=== PATIENT | male | born 1980 | race Caucasian/White ===

== ENCOUNTER 2016-11-27 07:36 | Inpatient (IN) | payer BC, OTHER ==
[~2016-11-27] VITALS: Ht 190.5 cm; Wt 83.9 kg
[2016-11-27] MEDS ORDERED: MAGNESIUM HYDROXIDE 30 ML LIQUID UDC PO PRN (16:00)
[2016-11-27] MEDS ORDERED: DIAZEPAM 5 MG TABLET PO PRN (16:00)
[2016-11-27] MEDS ORDERED: DIAZEPAM 10 MG TABLET PO PRN (16:00)
[2016-11-27] MEDS ORDERED: MIRALAX 17 GM POWD.PACK PO PRN (16:00)
[2016-11-27] MEDS ORDERED: CLONIDINE HCL 0.1 MG TABLET PO PRN (16:00)
[2016-11-27] MEDS ORDERED: DICYCLOMINE HCL 20 MG TABLET PO PRN (16:00)
[2016-11-27] MEDS ORDERED: MAG HYDROX/AL HYDROX/SIMETH 30 ML LIQUID UDC PO PRN (16:00)
[2016-11-27] MEDS ORDERED: LORAZEPAM 2 MG/1 ML VIAL IM PRN (16:00)
[2016-11-27] MEDS ORDERED: PROMETHAZINE HCL 25 MG/1 ML VIAL IM PRN (16:00)
[2016-11-27] MEDS ORDERED: LOPERAMIDE HCL 2 MG CAPSULE PO PRN (16:00)
--- NOTE | 2016-11-27 17:00 | NUR ---
ADMISSION NOTE: Pt is a 36 yo male admitted to [facility] with opiate and benzo dependence. Pt is 6 feet 3 inches tall and weighs 185 pounds. Pt is alert and oriented x4. Color good, skin warm and dry. Respirations even and unlabored. Initial vital signs; B/P 105/70 P 80 RR 16 T 98.2 Pulse Ox: 99%. Initial COWS 17 CIWA 14. Pt c/o sweating, nose running, stomach ache, tremors and body aches. Pt's skin is intact. Pt states he is allergic to penicillin. Full code, regular diet. Denies seizure history. Denies having a PMD. Pt seen and evaluated by Dr. Lima. Pt to start Valium and Subutex tapers in AM. Safety precautions observed. Call light within reach. Pt states his father "abuses pain pills." Pt lives with g/f and 2 year old son in [place]. Substance use history: Heroin 1- 1.5 gms daily IV X 5 months last use 1gm IV 11-26-16 @ 1800 Xanax 4-8 mg po X 1 year. Last use 11-27-16 2 mg @ 0800
[2016-11-27] MEDS: DIAZEPAM 10 MG TABLET PO PRN (17:15)
[2016-11-27] MEDS: BUPRENORPHINE HCL 2 MG TAB.SUBL SL PRN (17:16)
--- NOTE | 2016-11-27 17:30 | NUR ---
Valium 10mg po prn and Subutex 4mg sl prn administered.
[2016-11-27 17:41] LABS: *AMPHETAMINE, URINE POSITIVE (NEGATIVE); *BARBITURATE, URINE NEGATIVE (NEGATIVE); *CANNABINOID, URINE NEGATIVE (NEGATIVE); *COCCAINE, URINE POSITIVE (NEGATIVE); *OPIATE, URINE POSITIVE (NEGATIVE); *PHENCYCLIDINE SCREEN,URINE NEGATIVE (NEGATIVE)
--- NOTE | 2016-11-27 18:36 | NUR ---
Pt states he feels improved after Valium and Subutex prn. COWS 11 CIWA 8
--- NOTE | 2016-11-27 18:47 | NUR ---
END OF SHIFT NOTE: Report given to car shifter nurse. Pt is a 36 yo male admitted to [facility] with opiate and benzo dependence. Pt is 6 feet 3 inches tall and weighs 185 pounds. Pt is alert and oriented x4. Color good, skin warm and dry. Respirations even and unlabored. Initial vital signs; B/P 105/70 P 80 RR 16 T 98.2 Pulse Ox: 99%. Initial COWS 17 CIWA 14. Pt c/o sweating, nose running, stomach ache, tremors and body aches. Pt's skin is intact. Pt states he is allergic to penicillin. Full code, regular diet. Denies seizure history. Denies having a PMD. Pt seen and evaluated by Dr. Lima. Pt to start Valium and Subutex tapers in AM. Pt received Valium 10mg po prn and Subutex 4mg sl prn @ 1730. Last COWS 11 CIWA 8 @ 1830 . Safety precautions observed. Call light within reach . Substance use history:
[2016-11-27 19:10] LABS: HEMATOCRIT 36.1 % (40.0-50.0); HEMOGLOBIN 11.9 g/dL (14.0-18.0); MEAN CORPUSCULAR HEMOGLOBIN 28.9 uug (27.0-31.0); MEAN CORPUSCULAR HGB CONC 33 g/dL (32.0-37.0); MEAN CORPUSCULAR VOLUME 87.3 fL (82.0-92.0); PLATELET COUNT (AUTO) 283 K/uL (150-450); RED BLOOD CELL COUNT(AUTO) 4.14 MIL/uL (4.70-6.10); RED CELL DISTRIBUTION WIDTH 13.6 % (11.5-14.5); WHITE BLOOD COUNT (AUTO) 8.4 K/uL (4.0-11.2)
[2016-11-27 19:20] VITALS: BP 136/111
[2016-11-27 19:23] LABS: ALANINE AMINOTRANSFERASE 155 U/L (16-63); ALBUMIN 3.2 g/dL (3.4-5.0); ALKALINE PHOSPHATASE 170 U/L (50-136); ASPARTATE AMINOTRANSFERASE 134 U/L (15-37); BILIRUBIN,TOTAL 0.4 mg/dL (0.2-1.0); CALCIUM 8.6 mg/dL (8.5-10.1); CARBON DIOXIDE 31 mmol/L (21-32); CHLORIDE 103 mmol/L (98-107); ETHANOL < 3 MG/DL (0-0); GLUCOSE 73 mg/dL (74-106); POTASSIUM 3.7 mmol/L (3.5-5.1); SODIUM SERUM 138 mmol/L (136-145); TOTAL PROTEIN, SERUM 7.5 g/dL (6.4-8.2); UREA NITROGEN, BLOOD 15 mg/dL (7-18)
--- NOTE | 2016-11-27 19:25 | NUR ---
START OF SHIFT Received report from day shift nurse. Pt is lying in bed restless. He is a 36 yo male admitted to [facility] today for Opiate and BZD dependence He is A&O x4 and ambulatory. Allergic to PCNs, full code status, and on a regular diet. He has a PMH of anxiety and depression. On admission he admitted using Heroin IV 1-1.5 grams per day for 5 months and Xanax 4-8mg per day for 1 year. He is ordered a Valium and Subutex taper to start tomorrow. PRNs available for the management of withdrawal symptoms. Fall precautions in place. Bed is down with call light in reach.
[2016-11-27 19:27] LABS: GFR 84 mL/min (>60)
[2016-11-27] MEDS: ONDANSETRON ODT 4 MG TAB.RAPDIS SL PRN (19:29)
--- NOTE | 2016-11-27 19:30 | NUR ---
PRN Clonidine, Robaxin, and Zofran administration Pt is frequently turning in bed, is diaphoretic, has nausea, chills, runny nose, and muscle spasms. B/P 136/111 and HR 88. COWS score is 18 and CIWA 13. PRN Clonidine, Robaxin, and Zofran administered.
[2016-11-27 19:33] LABS: THYROID STIMULATING HORMONE 1.315 mIU/mL (0.358-3.740)
[2016-11-27 19:40] LABS: HIV-1 p24 ANTIGEN NON REACTIVE (NONREACTIVE); HIV-1/2 ANTIBODY NON REACTIVE (NONREACTIVE)
[2016-11-27 20:00] VITALS: BP 136/111
[2016-11-27 20:20] VITALS: BP 113/87
[2016-11-27] MEDS ORDERED: BUPRENORPHINE HCL 2 MG TAB.SUBL SL ONE ×4 (20:30→23:33)
--- NOTE | 2016-11-27 20:30 | NUR ---
PRN Clonidine, Robaxin, and Zofran reassessment PRN Clonidine and Robaxin mildly effective. Pt continues to toss and turn in bed with chills, nasal stuffiness, anxiety, muscle spasms, and restless legs. COWS 16 and CIWA 11. PRN Zofran effective. Pt reports relief of nausea.
--- NOTE | 2016-11-27 20:37 | NUR ---
One time Subutex administration Pt continues to experience withdrawal symptoms. PRN Clonidine and Robaxin mildly effective. Pt is shifting in bed with chills, nasal stuffiness, muscle spasms, and restless legs. COWS [address] Lima made aware with orders received for onetime Subutex.
[2016-11-27] MEDS ORDERED: DIAZEPAM 10 MG TABLET PO SCH (21:00)
[2016-11-27] MEDS ORDERED: GABAPENTIN 300 MG CAPSULE PO SCH (21:00)
[2016-11-27 21:06] LABS: BAND % (MANUAL) 3 % (0-10); EOSINOPHILS % (MANUAL) 7 % (0-8); LYMPHOCYTES % (MANUAL) 42 % (20-40); MONOCYTES % (MANUAL) 13 % (2-10); NEUTROPHILS % (MANUAL) 35 % (42-75)
[2016-11-27 21:07] LABS: PLATELET ESTIMATE ADEQUATE
--- NOTE | 2016-11-27 21:30 | NUR ---
One time Subutex reassessment One time Subutex administered with routine Valium and Gabapentin effective. COWS 7 and CIWA 7. Pt is more relaxed in bed and verbalizes that he is feeling better. He is shifting less frequently but continues to have restless legs. COWS 7 and CIWA 7.
[2016-11-27] MEDS ORDERED: BACLOFEN 20 MG TABLET PO ONE (23:15)
[2016-11-27] MEDS ORDERED: DIAZEPAM 10 MG TABLET PO ONE (23:15)
[2016-11-27] MEDS ORDERED: CLONIDINE HCL 0.1 MG TABLET PO ONE (23:15)
[2016-11-27 23:30] VITALS: BP 122/86
[2016-11-27] MEDS ORDERED: CLONIDINE HCL 0.1 MG TABLET ONE (23:31)
[2016-11-27] MEDS ORDERED: BACLOFEN 20 MG TABLET ONE (23:31)
[2016-11-27] MEDS ORDERED: DIAZEPAM 10 MG TABLET ONE (23:32)
--- NOTE | 2016-11-27 23:35 | NUR ---
Communication/One time Subutex, Valium, Baclofen, and Clonidine Pt is experiencing hot and cold flashes, diaphoresis, is frequently turning in bed, painful muscle spasms, restless legs, anxiety, and agitation. COWS 18 [address] CIWA 16[address] Lima with orders received for one time Subutex, Valium, Baclofen, and Clonidine.
[2016-11-28] VITALS: BP 122/86
--- NOTE | 2016-11-28 00:35 | NUR ---
One time Subutex, Valium, Baclofen, and Clonidine reassessment Medications effective. Pt is lying comfortably in bed with eyes closed. Respirations even and unlabored. Bed is down with call light in reach.
--- NOTE | 2016-11-28 04:00 | NUR ---
0400 Vitals refused Pt refused 0400 vitals. Pt was easily arousable. Respirations even and unlabored. Bed is down with call light in reach.
--- NOTE | 2016-11-28 07:20 | NUR ---
END OF SHIFT Report provided to day shift nurse. Pt is lying in bed restless. He is a 36 yo male admitted to [facility] on 11/27 for Opiate and BZD dependence He is A&O x4 and ambulatory. Allergic to PCNs, full code status, and on a regular diet. He has a PMH of anxiety and depression. On admission he admitted using Heroin IV 1-1.5 grams per day for 5 months and Xanax 4-8mg per day for 1 year. Subutex and Valium taper will start today. Pt experienced s/s of withdrawal. PRN Clonidine, Robaxin, and Zofran administered. Additional orders received for one time Subutex x2, Clonidine, Baclofen, and Valium. Medications effective as pt was resting comfortably in bed. He drank 855mL and slept 6 hours. Fall precautions in place. Bed is down with call light in reach.
--- NOTE | 2016-11-28 07:25 | NUR ---
Start of shift note Pt was admitted for benzo and opiate dependence. Pt has a PMH of depression and anxiety. Pt is on a valium and subutex taper. 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 pt is currently sleeping in his bed. Respirations are even and unlabored, bed is locked in a low position, side rails up x 2, call lights within reach. Will continue to monitor pt. All needs addressed at this time.
[2016-11-28 08:00] VITALS: BP 108/67
[2016-11-28] MEDS ORDERED: TUBERCULIN,PURIF.PROT.DERIV. 5 TU/0.1 ML TEST ID ONE (09:00)
[2016-11-28] MEDS: MULTIVITAMINS,THERAPEUTIC TABLET PO SCH (10:00)
[2016-11-28] MEDS: GABAPENTIN 300 MG CAPSULE PO SCH ×3 (10:01→20:45)
[2016-11-28] MEDS: DIAZEPAM 10 MG TABLET PO SCH ×4 (10:01→20:45)
[2016-11-28] MEDS: BUPRENORPHINE HCL 2 MG TAB.SUBL SL SCH ×4 (10:01→20:45)
--- NOTE | 2016-11-28 10:04 | NUR ---
Late administration Pt was sleeping soundly, medications administered late, Dr Lima is aware. NNO at this time. Pt has a COWS of 12 and CIWA of 11. Will continue to monitor pt. Pt refused PPD test, requested a CXR tomorrow afternoon, orders entered.
[2016-11-28 12:00] VITALS: BP 135/79
--- NOTE | 2016-11-28 12:30 | NUR ---
PRN administration Pt c/o body aches, administered PRN robaxin. Will continue to monitor pt.
[2016-11-28] MEDS: METHOCARBAMOL 750 MG TABLET PO PRN ×2 (12:34→20:45)
--- NOTE | 2016-11-28 13:30 | NUR ---
Reassessment Pt is resting comfortably, respirations are even and unlabored. Will continue to monitor pt.
--- NOTE | 2016-11-28 14:30 | NUR ---
PRN administration Pt has a COWS of 14 and CIWA of 15. Administered PRN subutex and valium. Dr Lima aware. Will continue to monitor pt. All other needs addressed at this time.
[2016-11-28] MEDS: DIAZEPAM 10 MG TABLET PO PRN (14:31)
[2016-11-28] MEDS: BUPRENORPHINE HCL 2 MG TAB.SUBL SL PRN (14:31)
--- NOTE | 2016-11-28 15:00 | NUR ---
Reassessment Subutex was effective, new COWS of 5. Pt is sleeping and resting comfortably.
--- NOTE | 2016-11-28 15:30 | NUR ---
Reassessment Pt valium was effective, pt has a CIWA of 6. Pt is sleeping and resting comfortably. All needs addressed at this time. Will continue to monitor pt.
[2016-11-28] MEDS ORDERED: DIAZEPAM 5 MG TABLET PO PRN (17:15)
[2016-11-28] MEDS ORDERED: DIAZEPAM 10 MG TABLET PO PRN ×2 (17:15)
[2016-11-28 17:42] VITALS: BP 118/66
--- NOTE | 2016-11-28 19:15 | NUR ---
End of shift note Pt was admitted for benzo and opiate dependence. Pt has a PMH of depression and anxiety. Pt is on a valium and subutex taper. Pt had multiple PRN medications during the core extruder to manage his severe s/s of withdrawal with some relief. Pt COWS/CIWA scores went up to 14/15 during the shift, and were relieved by the PRN medications. Pt recent COWS/CIWA scores of 4/4. Pt slept most of the shift. Pt did not wish to participate in group activities. Pt is currently sleeping in bed. Respirations are even and unlabored. No s/s of distress noted. SBAR report endorsed to oncoming shift.
--- NOTE | 2016-11-28 19:30 | NUR ---
START OF SHIFT NOTE: Patient is a 36 y/o male admitted on 11/27/16 for Opiate and Benzo dependence. Patient reported using Heroin IV 1.0-1.5 grams daily and Xanax 4-8mg daily. Patient with medical history of Depression & Anxiety. Patient is on a regular diet with allergies to Penicillins. Full Code status. Fall precaution noted. Patient is on a 5-day Valium & 5-day Subutex taper and tolerating well. Pt was given PRN Subutex, Valium & Robaxin during day shift. Last COWS is 4 CIWA 6 noted. Patient is alert & oriented x3. No shortness of breath noted. Respiration even & unlabored. Abdomen soft & non-distended. Bowel sounds active in all four quadrants. Nausea noted. No episode of vomiting noted. Patient complains of 8/10 body aches, sweating, chills, stomach cramps, and very bad headache. No hallucinations noted. Patient denies SI/HI. Slight hand tremors felt. Patient stable. Safety precautions are in place. Bed locked in lowest position. Both side rails up. Call light within pts reach. Will continue to monitor patient.
[2016-11-28 20:00] VITALS: BP 137/72
[2016-11-28] MEDS: diphenhydrAMINE 50 MG CAPSULE PO PRN (20:45)
[2016-11-28] MEDS: ONDANSETRON ODT 4 MG TAB.RAPDIS SL PRN (20:45)
[2016-11-28] MEDS: IBUPROFEN 600 MG TABLET PO PRN (20:45)
--- NOTE | 2016-11-28 20:45 | NUR ---
PRN given Patient complains of 8/10 body aches, 8/10 headache, Nausea & not able to stay asleep. Patient with no episode of vomiting. Facial grimacing noted. Patient appears restless and irritable. PRN Robaxin, Motrin, Zofran, & Benadryl given as ordered. Will continue to monitor patient.
--- NOTE | 2016-11-28 21:45 | NUR ---
PRN Reassessment PRN medication effective. Patient verbalized improved nausea and relief from pain/discomfort. Patient lying in bed and appears comfortable. Will continue to monitor patient.
[2016-11-29] VITALS: BP 109/74
--- NOTE | 2016-11-29 04:00 | NUR ---
Vitals/Cows/Ciwa deferred Patient refused vitals at this time. Patient asleep in bed and appears comfortable. No s/s of distress at this time. No shortness of breath noted. Will continue to monitor.
--- NOTE | 2016-11-29 07:03 | NUR ---
END OF SHIFT NOTE: Patient is a 36 y/o male admitted on 11/27/16 for Opiate and Benzo dependence. Patient reported using Heroin IV 1.0-1.5 grams daily and Xanax 4-8mg daily. Patient with medical history of Depression & Anxiety. Patient is on a regular diet with allergies to Penicillins. Full Code status. Fall precaution noted. Patient is on a 5-day Valium & 5-day Subutex taper and tolerating well. Last Cows is 5 Ciwa 4. Pt was given PRN Robaxin, Motrin, Zofran & Benadryl during my shift and were effective. Pt reported medication is effective in controlling his withdrawal symptoms by the decrease in his Cows & Ciwa scores. Pt remained stable and vitals remains WNL. Pt has been sleeping throughout the night. Pt slept for a total of 10 hours. Pt consumed 500ml of fluids. Voided 3x with no bowel movement. All needs attended & met. Safety precautions are in place. Will endorse pt to day shift nurse.
[2016-11-29 08:00] VITALS: BP 113/83
--- NOTE | 2016-11-29 08:00 | NUR ---
START OF SHIFT: RECEIVED PT A/O X 4. HE PRESENTS WITH BLUNTED AFFECT AND DEPRESSED MOOD. HE DENIES S/I AND H/I. HE REPORTS SOME ANXIETY AND DEPRESSION ALONG WITH SOME NIGHT SWEATS BODY ACHES AND RESTLESSNESS. VALIUM/SUBUTEX TAPER IN PROGRESS. COWS 5 CIWA 4. ENCOURAGED INCREASED FLUIDS. ENCOURAGED GROUP ATTENDANCE . WILL CONTINUE TO MONITOR AND MANAGE S/S OF W/D.
[2016-11-29 08:57] LABS: FOLIC ACID 40.2 NG/ML (8.6-58.9)
[2016-11-29] MEDS: GABAPENTIN 300 MG CAPSULE PO SCH ×3 (09:00→20:10)
[2016-11-29] MEDS ORDERED: DIAZEPAM 10 MG TABLET PO SCH ×2 (09:00→21:00)
[2016-11-29] MEDS: MULTIVITAMINS,THERAPEUTIC TABLET PO SCH (09:26)
[2016-11-29] MEDS: BUPRENORPHINE HCL 2 MG TAB.SUBL SL SCH ×3 (09:28→20:13)
[2016-11-29 09:51] LABS: CALCIUM 9.1 mg/dL (8.5-10.1); CREATININE 1.2 mg/dL (0.6-1.3)
[2016-11-29] MEDS ORDERED: BUPRENORPHINE HCL 2 MG TAB.SUBL SL ONE (11:30)
[2016-11-29 12:00] VITALS: BP 116/78
[2016-11-29 16:00] VITALS: BP 126/80
[2016-11-29] MEDS: ESCITALOPRAM OXALATE 10 MG TABLET PO SCH (17:24)
--- NOTE | 2016-11-29 18:48 | NUR ---
END OF SHIFT: PT CONTINUES ON VALIUM/SUBUTEX TAPER. HE STATES IT IS EFFECTIVE AND DID NOT ASK FOR PRNS. LAST COWS 2 CIWA 2. HIS VALIUM TAPER WAS MODIFIED PER MD. HE IS EATING 100% OF MEALS. HE ISOLATED IN HIS ROOM MOST OF SHIFT. HE DENIES S/I AND H/I. HIS MOOD IS SUBDUED AND HE IS DISHEVELED. WILL PASS SHIFT REPORT TO ONCOMING NIGHT NURSE.
[2016-11-29 20:00] VITALS: BP 134/90
--- NOTE | 2016-11-29 20:00 | NUR ---
START OF SHIFT NOTE PATIENT C/O HEADACHE UPON GREETING 04/14. PATIENT REPORTS ANXIETY, SWEATING, FLUSHED FACE, STUFFY NOSE, ABDOMINAL CRAMPING, NO N/V. ALERT AND ORIENTED X 4. RESPIRATION EVEN AND UNLABORED. PATIENT IS A 36 YEAR OLD MALE, ADMITTED ON 11/27/16 FOR OPIATE/BENZO DEPENDENCE. PATIENT IS FULL CODE, REGULAR DIET AND ALLERGIC TO PENICILLIN. PATIENT REPORTS PMH OF DEPRESSION AND ANXIETY. PATIENT'S DRUG OF CHOICE ARE HEROIN 1-1.5 GRAM IV FOR 5 MONTHS AND XANAX 4-8 MG FOR A YEAR. ON FALL PRECAUTION. PATIENT IS ON 2ND DAY OF HIS 5 DAY VALIUM AND 5 DAY SUBUTEX TAPER. SKIN INTACT. PATIENT'S TAPER WAS CHANGED TO MODIFIED SUBUTEX AND VALIUM TAPER.PATIENT DID NOT REQUIRE ANY PRN MEDICATION DURING THE DAY. LAST COWS 2 AND CIWA 2. SAFETY MEASURES IN PLACE. CALL LIGHT IN REACH. WILL CONTINUE TO MONITOR.
[2016-11-29] MEDS: ACETAMINOPHEN 325 MG TABLET PO PRN (20:10)
--- NOTE | 2016-11-29 20:10 | NUR ---
PRN TYLENOL ADMINISTRATION PATIENT C/O HEADACHE 04/14. PRN TYLENOL GIVEN. WILL MONITOR FOR EFFECTIVENESS
--- NOTE | 2016-11-29 21:10 | NUR ---
PRN TYLENOL RE-ASSESSMENT PATIENT STATES TYLENOL IS HELPFUL AND EFFECTIVE. WILL CONTINUE TO MONITOR.
--- NOTE | 2016-11-30 | NUR ---
COWS/CIWA/VS PATIENT REFUSED VS. COWS/CIWA UNABLE TO COMPLETE. RESPIRATION EVEN AND UNLABORED RR 15. NO S/S OF DISTRESS. SAFETY MEASURES IN PLACE. CALL LIGHT IN REACH. WILL CONTINUE TO MONITOR.
--- NOTE | 2016-11-30 07:10 | NUR ---
END OF SHIFT NOTE PATIENT IS A 36 YEAR OLD MALE, ADMITTED ON 11/27/16 FOR OPIATE/BENZO DEPENDENCE. PATIENT IS FULL CODE, REGULAR DIET AND ALLERGIC TO PENICILLIN. PATIENT REPORTS PMH OF DEPRESSION AND ANXIETY. PATIENT'S DRUG OF CHOICE ARE HEROIN 1-1.5 GRAM IV FOR 5 MONTHS AND XANAX 4-8 MG FOR A YEAR. ON FALL PRECAUTION. PATIENT IS ON 2ND DAY OF HIS 5 DAY VALIUM AND 5 DAY SUBUTEX TAPER. SKIN INTACT. PATIENT'S TAPER WAS CHANGED TO MODIFIED SUBUTEX AND VALIUM TAPER. PATIENT COMPLIANT WITH MEDICATION AND TREATMENT PLAN. PATIENT C/O HEADACHE. PATIENT REPORTS ANXIETY, SWEATING, FLUSHED FACE, STUFFY NOSE, ABDOMINAL CRAMPING, NO N/V. ALERT AND ORIENTED X 4. RESPIRATION EVEN AND UNLABORED. PATIENT IN HIS ROOM MOST OF THE SHIFT. SAFETY MEASURES IN PLACE. CALL LIGHT IN REACH. WILL CONTINUE TO MONITOR. SLEPT 11 HOURS . FLUID INTAKE 120 ML. VOIDED X 0 . NO BM .LAST CIWA 7 AND COWS 7.
--- NOTE | 2016-11-30 07:11 | NUR ---
Start of Shift Notes: Received patient in his room. Alert and oriented x 4. Verbally responsive. Able to make needs known. Respirations even and unlabored. No SOB noted. Skin warm and dry to touch. Abdomen soft and non-distended with (+) BS in all 4 quadrants. No complains of N/V/D or constipation noted. No complains of dysuria. Ambulatory ad valerie with steady gait. Patient is a 36 year old male admitted for opiate and BZO dependence who was placed on a modified Valium and Subutex taper. Tolerated well. No adverse reactions noted. Has past medical hx of anxiety and depression. Allergic to PCN. FULL CODE. Regular diet. On fall and seizure precautions. Educated patient on the current plan of care for the day and the medication regimen. Encouraged oral fluid intake and encouraged group participation to learn new skills to prevent relapse. Safety precautions in place. Call light kept in reach. Will continue to monitor closely.
[2016-11-30 08:00] VITALS: BP 149/94
[2016-11-30] MEDS ORDERED: BUPRENORPHINE HCL 2 MG TAB.SUBL SL SCH (09:00)
[2016-11-30] MEDS ORDERED: DIAZEPAM 5 MG TABLET PO SCH (09:00)
[2016-11-30 09:03] LABS: ALBUMIN 3.8 g/dL (3.4-5.0); BILIRUBIN,DIRECT 0.2 mg/dL (0.0-0.2); BILIRUBIN,TOTAL 0.5 mg/dL (0.2-1.0); CALCIUM 9.5 mg/dL (8.5-10.1); POTASSIUM 3.9 mmol/L (3.5-5.1); TOTAL PROTEIN, SERUM 9.2 g/dL (6.4-8.2)
[2016-11-30] MEDS: ESCITALOPRAM OXALATE 10 MG TABLET PO SCH (09:13)
[2016-11-30 09:14] LABS: MAGNESIUM 2.2 mg/dL (1.8-2.4)
[2016-11-30] MEDS: DIAZEPAM 5 MG TABLET PO SCH ×3 (09:14→21:02)
[2016-11-30] MEDS: MULTIVITAMINS,THERAPEUTIC TABLET PO SCH (09:14)
[2016-11-30] MEDS: GABAPENTIN 300 MG CAPSULE PO SCH ×2 (09:14→21:03)
[2016-11-30 12:00] VITALS: BP 135/71
[2016-11-30] MEDS ORDERED: CLONIDINE HCL 0.1 MG TABLET PO ONE (15:15)
[2016-11-30] MEDS: BUPRENORPHINE HCL 2 MG TAB.SUBL SL SCH ×2 (15:17→21:02)
[2016-11-30] MEDS: KETOROLAC TROMETHAMINE 30 MG INJ IM PRN (15:19)
--- NOTE | 2016-11-30 15:19 | NUR ---
PRN Toradol 30 mg IM and one time Clonidine 0.1mg PO given: Patient noted with complain of 7/10 neck pain as well as chills, anxiety and sweats. MD Lima aware. Non-pharmacological interventions were ineffective. Medicated patient with Clonidine 0.1mg PO and Toradol 30 mg IM as ordered. Will monitor for effectiveness.
--- NOTE | 2016-11-30 15:50 | NUR ---
Toradol re-assessment: Per patient, PRN Toradol was mildly effective in reducing patient's pain. PL 5/10.
[2016-11-30 16:00] VITALS: BP 110/69
--- NOTE | 2016-11-30 16:19 | NUR ---
Clonidine re-assessment: Per patient, PRN Clonidine was effective in reducing anxiety and chills.
[2016-11-30] MEDS: ACETAMINOPHEN 325 MG TABLET PO PRN (16:24)
--- NOTE | 2016-11-30 16:24 | NUR ---
Tylenol 650 mg PO given: Patient continues to complain of 5/10 neck pain. Unable to be relieved with Toradol 30 mg IM. Medicated patient with Tylenol 650 mg PO as ordered. Will monitor for effectiveness.
--- NOTE | 2016-11-30 17:24 | NUR ---
Re-assessment: Per patient, Tylenol was effective in reducing his neck pain. Will continue to monitor closely.
--- NOTE | 2016-11-30 18:19 | NUR ---
NPO orders: Received orders from MD for patient to be NPO for abdominal US in am. Patient was informed.
--- NOTE | 2016-11-30 18:33 | NUR ---
End of Shift Notes: Patient is a 36 year old male admitted on 11/27/2016 for opiate and BZO dependence who was placed on a modified 5-day Valium and Subutex taper as ordered. No adverse reactions noted. Allergic to PCN. FULL CODE. Regular diet. On fall and seizure precautions. Has past medical hx of depression and anxiety. Patient's VS were closely monitored q 4 hours. No significant abnormalities noted. Prior to admission, patient was using 1 to 1.5 grams of Heroin IV and 4-8mg of Xanax. Initial COWS 9, CIWA 7. Patient presented with bone/joint aches, chills, hot flashes, anxiety, agitation. Medicated patient with Toradol 30mg IM, and Clonidine 0.1mg at 1519. Mild effect noted from Toradol and Clonidine was effective. PRN Tylenol 650 mg PO was given at 1624 with help after 1 hour. Last COWS 8,/CIWA 5. Per patient, Subutex and Valium has been helping him with his withdrawal symptoms. Patient will be NPO after midnight for abdominal US. Compliant with care and treatment. Participated in group and therapy sessions. All needs met and attended. Will continue to monitor. Safety precautions in place.
[2016-11-30 20:00] VITALS: BP 113/82
--- NOTE | 2016-11-30 20:00 | NUR ---
START OF SHIFT NOTE PATIENT IS A 36 YEAR OLD MALE ADMITTED FOR OPIATE /BENZO DEPENDENCE.PATIENT IS FULL CODE, REGULAR DIET AND ALLERGIC TO PENICILLIN. PATIENT WAS PLACED ON MODIFIED VALIUM AND SUBUTEX TAPER . PATIENT IS SCHEDULE FOR ABDOMINAL ULTRASOUND TOMORROW . NPO AFTER MIDNIGHT, PATIENT INFORMED AND AWARE. PATIENT WAS GIVEN PRN CLONIDINE, TYLENOL AND TORADOL IM DURING THE DAY. LAST COWS 8 AND CIWA 5. SKIN INTACT. PATIENT C/O ANXIETY, SWEATING, DIARRHEA X 1, ABDOMINAL CRAMPING , NO N/V. ENCOURAGE FLUIDS. PATIENT ON FALL PRECAUTION. SAFETY MEASURES IN PLACE. CALL LIGHT IN REACH. WILL CONTINUE TO MONITOR.
--- NOTE | 2016-11-30 20:58 | NUR ---
PRN BENTYL AND IMODIUM ADMINISTRATION PATIENT REPORTS ABDOMINAL CRAMPING AND DIARRHEA X 1. PRN BENTYL AND IMODIUM GIVEN. WILL MONITOR FOR EFFECTIVENESS.
[2016-11-30] MEDS: CLONIDINE HCL 0.1 MG TABLET PO SCH (21:00)
[2016-11-30] MEDS: BACLOFEN 20 MG TABLET PO SCH (21:00)
--- NOTE | 2016-11-30 22:00 | NUR ---
PRN BENTYL/IMODIUM RE-ASSESSMENT PATIENT STATES BENTYL AND IMODIUM HELPFUL AND EFFECTIVE. NO EPISODE OF DIARRHEA OF THIS TIME AND ABDOMINAL CRAMPING LESS. WILL CONTINUE TO MONITOR.
[2016-12-01] VITALS: BP 143/80
[2016-12-01 04:00] VITALS: BP 94/60
--- NOTE | 2016-12-01 07:06 | NUR ---
END OF SHIFT NOTE PATIENT IS A 36 YEAR OLD MALE ADMITTED FOR OPIATE /BENZO DEPENDENCE.PATIENT IS FULL CODE, REGULAR DIET AND ALLERGIC TO PENICILLIN. PATIENT WAS PLACED ON MODIFIED VALIUM AND SUBUTEX TAPER , TOLERATED. NO ADVERSE REACTION . PATIENT REPORTS PMH OF DEPRESSION AND ANXIETY. PATIENT'S DRUG OF CHOICE ARE HEROIN 1-1.5 GRAM IV FOR 5 MONTHS AND XANAX 4-8 MG FOR A YEAR. PATIENT IS SCHEDULE FOR ABDOMINAL ULTRASOUND TODAY . NPO AFTER MIDNIGHT. PATIENT AWARE. SKIN INTACT. PATIENT C/O ANXIETY, SWEATING, DIARRHEA X 1, ABDOMINAL CRAMPING , NO N/V. ENCOURAGE FLUIDS. PATIENT WAS GIVEN PRN IMODIUM AND BENTYL DURING SHIFT. PATIENT COMPLIANT WITH MEDICATION AND TREATMENT PLAN. PATIENT ON FALL PRECAUTION. PATIENT DID NOT HAVE ANY DIARRHEA EPISODE THE REST OF THE SHIFT. MEDICATION IS EFFECTIVE IN CONTROLLING HIS WITHDRAWAL SYMPTOMS FROM COWS 6 TO 1 AND CIWA FROM 3 TO 1.SAFETY MEASURES IN PLACE. CALL LIGHT IN REACH. WILL CONTINUE TO MONITOR. SLEPT 8 HOURS. FLUID INTAKE 500 ML. VOIDED X 1. BM X 1.
[2016-12-01 08:00] VITALS: BP 103/88
--- NOTE | 2016-12-01 08:00 | NUR ---
START OF SHIFT Pt 36 y/o male admitted for opioid and benzo dependence. Pt received in room awake sitting on bed. Pt alert and oriented to name, place, and time. perrla. Skin warm and slightly moist to touch. Respirations even and unlabored. Bilateral hand tremors noted. Pt states he has episodes of chills and sweats. It was reported that pt slept for 8 hours last night. Bed on lowest position with side rails x2 up for safety. Call rylee mike. Pt is aware that he is NPO until the U/S abd. No distress noted at this time.
[2016-12-01] MEDS: BUPRENORPHINE HCL 2 MG TAB.SUBL SL SCH ×3 (08:51→20:39)
[2016-12-01] MEDS: DIAZEPAM 5 MG TABLET PO SCH ×2 (08:51→20:39)
[2016-12-01] MEDS: GABAPENTIN 300 MG CAPSULE PO SCH ×3 (08:51→20:39)
[2016-12-01] MEDS: BACLOFEN 20 MG TABLET PO SCH ×3 (08:52→20:38)
[2016-12-01] MEDS: CLONIDINE HCL 0.1 MG TABLET PO SCH ×3 (08:52→20:38)
[2016-12-01] MEDS: CHOLECALCIFEROL 1,000 UNIT TABLET PO SCH (08:52)
[2016-12-01] MEDS: MULTIVITAMINS,THERAPEUTIC TABLET PO SCH (08:52)
[2016-12-01] MEDS: ESCITALOPRAM OXALATE 10 MG TABLET PO SCH (08:52)
[2016-12-01] MEDS ORDERED: DIAZEPAM 5 MG TABLET PO SCH (09:00)
--- NOTE | 2016-12-01 10:00 | NUR ---
U/S U/S done and completed. Pt tolerated well. Pt removed off NPO and late tray was ordered. Awaiting results.
[2016-12-01 12:00] VITALS: BP 110/80
[2016-12-01 16:00] VITALS: BP 103/60
[2016-12-01 16:14] LABS: HCV AB >11.0 s/co ratio (0.0-0.9); HEPATITIS B CORE AB, IgM Negative (Negative); HEPATITIS B SURFACE AG Positive (Negative)
--- NOTE | 2016-12-01 16:30 | NUR ---
U/S results U/S results documented. Dr. Lima aware.
--- NOTE | 2016-12-01 18:34 | NUR ---
END OF SHIFT Pt 33 y/o female admitted for benzo and opiate dependence. Pt alert and oriented to name, place, and time. Perrla. Skin warm and slightly moist to touch. Respirations even and unlabored. Peripheral IV 22g on left leg intact and in place, with no redness or infiltration noted and infusing NS @125mL / hr and is tolerating well. Pt partially compliant with IV therapy, requesting to have the IV fluids disconnected multiple times throughout the day to go to the patio. Pt with sitter 1:1 for safety. Pt medication compliant and tolerated well. No ASe noted at this time. Bed on lowest position with side rails x2 up for safety. Call light within reach. No distress noted at this time. Addendum: 12/01/16 at 1835 by RADHA BAILEY RN incorrect pt
--- NOTE | 2016-12-01 18:36 | NUR ---
END OF SHIFT Pt 36 y/o male admitted for opioid and benzo dependence. Pt alert and oriented to name, place, and time. Perrla. Skin warm and slightly moist to touch. Respirations even and unlabored. Bilateral hand tremors noted. Pt states he had episodes of chills and sweats throughout the day. Pt observed mostly in room throughout the day, but did attend group activity. U/S completed with results and Dr. Lima aware. Pt medication compliant and tolerated well. No ASE noted. Bed on lowest position with side rails x2 up for safety. Call light within reach. No distress noted at this time.
[2016-12-01 20:00] VITALS: BP 124/82
--- NOTE | 2016-12-01 20:00 | NUR ---
START OF SHIFT NOTE PATIENT IS A 36 YEAR OLD MALE, ADMITTED FOR OPIATE/BENZO DEPENDENCE. PATIENT IS ON MODIFIED VALIUM AND SUBUTEX TAPER. PATIENT IS FULL CODE, REGULAR DIET AND ALLERGIC TO PENICILLIN. PATIENT REPORTS PMH OF ANXIETY AND DEPRESSION. SKIN INTACT. PATIENT DID NOT RECEIVE ANY PRN MEDICATION DURING THE DAY. LAST COWS 4 AND CIWA 2. SKIN INTACT. PATIENT ALERT AND ORIENTED X 4. RESPIRATION EVEN AND UNLABORED. PATENT REPORTS ANXIETY, SWEATING , NO N/V AND NECK PAIN 12/13. PATIENT STATES HE ATTENDED GROUPS , JUST MISSED ONE. ATE MEALS WITH GOOD APPETITE AND DRINKING FLUIDS WELL. ABDOMINAL ULTRASOUND WAS DONE IN AM. RESULT WAS MILD HEPATOMEGALY. DR. GAO AWARE OF THE RESULT . ON FALL PRECAUTION . SAFETY MEASURES IN PLACE. CALL LIGHT IN REACH. WILL CONTINUE TO MONITOR
[2016-12-01] MEDS: ACETAMINOPHEN 325 MG TABLET PO PRN (20:39)
--- NOTE | 2016-12-01 20:39 | NUR ---
PRN TYLENOL ADMINISTRATION PATIENT C/O NECK PAIN 12/13. PRN TYLENOL GIVEN. WILL MONITOR FOR EFFECTIVENESS
--- NOTE | 2016-12-01 21:39 | NUR ---
PRN TYLENOL RE-ASSESSMENT PATIENT STATES THAT TYLENOL IS MILDLY EFFECTIVE. WILL CONTINUE TO MONITOR.
[2016-12-01] MEDS: IBUPROFEN 600 MG TABLET PO PRN (22:55)
--- NOTE | 2016-12-01 22:55 | NUR ---
PRN MOTRIN ADMINISTRATION PATIENT STILL C/O NECK PAIN 12/13. PRN MOTRIN GIVEN. WILL CONTINUE TO MONITOR
[2016-12-02] VITALS: BP 96/52
--- NOTE | 2016-12-02 | NUR ---
PRN MOTRIN RE-ASSESSMENT PATIENT STATES MOTRIN EFFECTIVE FOR HIS NECK PAIN . WILL CONTINUE TO MONITOR
--- NOTE | 2016-12-02 04:00 | NUR ---
COWS/CIWA /VS PATIENT REFUSED VS . COWS/CIWA ASSESSMENT. RESPIRATION EVEN AND UNLABORED. NO S/S OF DISTRESS. RR 10. SAFETY MEASURES IN PLACE. CALL LIGHT IN REACH. WILL CONTINUE TO MONITOR
--- NOTE | 2016-12-02 07:00 | NUR ---
Start of Shift Notes: Received patient in his room. Alert and oriented x 4. Able to make needs known. Respirations even and unlabored. No SOB noted. Skin warm and dry to touch. Abdomen soft and non-distended with (+) BS in all 4 quadrants. No complains of N/V/D or constipation noted. No complains of abdominal discomfort noted. Bladder non-distended. No complains of dysuria noted. Voids independently. Ambulatory ad valerie with steady gait. Patient is a 36 year old male admitted for opiate and BZO dependence who was placed on a modified 5-day and Subutex taper as ordered. No adverse reactions noted. Has past medical hx of anxiety and depression. Allergic to PCN. FULL CODE. Regular diet. Educated patient on his current plan of care for the day and his medication regimen. Encouraged oral fluid intake and encouraged group participation to learn new skills to prevent relapse. Will continue to monitor closely.
[2016-12-02 08:00] VITALS: BP 113/70
[2016-12-02] MEDS: BUPRENORPHINE HCL 2 MG TAB.SUBL SL SCH ×2 (08:15→21:05)
[2016-12-02] MEDS: CHOLECALCIFEROL 1,000 UNIT TABLET PO SCH (08:15)
[2016-12-02] MEDS: DIAZEPAM 2 MG TABLET PO SCH ×2 (08:15→21:05)
[2016-12-02] MEDS: BACLOFEN 20 MG TABLET PO SCH ×3 (08:15→21:05)
[2016-12-02] MEDS: CLONIDINE HCL 0.1 MG TABLET PO SCH ×3 (08:15→21:05)
[2016-12-02] MEDS: GABAPENTIN 300 MG CAPSULE PO SCH ×3 (08:16→21:05)
[2016-12-02] MEDS: MULTIVITAMINS,THERAPEUTIC TABLET PO SCH (08:16)
[2016-12-02] MEDS ORDERED: DIAZEPAM 5 MG TABLET PO SCH (09:00)
[2016-12-02] MEDS ORDERED: ESCITALOPRAM OXALATE 10 MG TABLET PO SCH (09:00)
--- NOTE | 2016-12-02 11:07 | NUR ---
PATIENT ENDORSED Pt was endorsed to me. Will resume care.
[2016-12-02] MEDS: KETOROLAC TROMETHAMINE 30 MG INJ IM PRN ×2 (11:11→21:12)
--- NOTE | 2016-12-02 11:11 | NUR ---
PRN TORADOL Pt complains of 9/10 neck pain that is unrelieved with nonpharmacological methods. PRN Toradol administered as ordered. Will reassess.
--- NOTE | 2016-12-02 12:10 | NUR ---
REASSESSMENT Pt states medication was not effective but he will use nonpharmacological methods to alleviate pain at this time.
[2016-12-02 13:01] VITALS: BP 106/70
[2016-12-02 16:00] VITALS: BP 109/70
[2016-12-02] MEDS: ACETAMINOPHEN 325 MG TABLET PO PRN (18:48)
--- NOTE | 2016-12-02 18:48 | NUR ---
PRN TYLENOL Pt complains of 8/10 neck pain, PRN Tylenol administered as ordered. shift foreman to reassess.
--- NOTE | 2016-12-02 19:10 | NUR ---
END OF SHIFT Endorsed to environmental protection inspector nurse. Pt is a 36 year old male admitted for opiate and benzo dependence. Pt is A/O x4. V/S remain WNL throughout shift. PRN Toradol and Tylenol administered for neck pain. Pt encouraged to attend group activities. Pt verbalizes feelings. Pt ambulates with steady gait, has adequate caloric and fluid intake. Pt remains calm, compliant and cooperative with treatment plan. Most recent COWS 5, CIWA 4. All needs met. sequins spooler nurse to continue monitoring.
--- NOTE | 2016-12-02 19:35 | NUR ---
START OF SHIFT NOTE Received report from day shift nurse. Pt is 36 y o male, admitted on 11/27/16 for heroin (1-1.5 g daily for 5 months) and Xanax ( 4-8 mg daily for 1 yr) dependence. Pt is on 5 day Valium and 5 day Subutex tapers to be finished on 12/03/16. Pt in room, aaox4. Pt c/o severe pain to right upper shoulder 04/14, as per day shift reports, pt received Tylenol prn but it was not effective. Pt repots mild anxiety, chills. Skin flushed, barely sweaty. Noted mild tremors with arms extended. Pupils PERRLA 2 mm bilat, eyes moist. Lung sounds clear bilat, heart rate regular. Pt denies n/v/d, bowel sounds active 4. Pt denies urinary difficulties. PMH of depression and anxiety. Pt is full code, regular diet, allergic to PCN. Pt is on fall precautions. Side rails up x 2, call light within reach, bed locked in lowest position. Will continue with plan of care.
[2016-12-02 20:00] VITALS: BP 120/77
--- NOTE | 2016-12-02 21:13 | NUR ---
TORADOL PRN Toradol IM administered prn as ordered for right shoulder pain 04/14. Pt provided with warm compress for comfort. Fall precautions in place, will continue to monitor
--- NOTE | 2016-12-02 22:00 | NUR ---
REASSESSMENT Pt states pain decreased to 2/10 and tolerable now
[2016-12-02] MEDS: diphenhydrAMINE 50 MG CAPSULE PO PRN (23:42)
--- NOTE | 2016-12-02 23:50 | NUR ---
PRN BENADRYL Pt c/o insomnia, administered prn benadryl PO 50 mg.
[2016-12-03] VITALS: BP 115/58
--- NOTE | 2016-12-03 01:00 | NUR ---
REASSESSMENT Pt asleep, RR unlabored. Will continue to monitor
--- NOTE | 2016-12-03 04:00 | NUR ---
VS, COWS, CIWA Pt refused VS and COWS/ CIWA assessment, state he wants to sleep and not to be bothered. Pt asleep, RR even and unlabored at 19 breaths per minute. Side rails up x 2, call light within reach, bed locked in lowest position. Will continue o monitor Addendum: 12/03/16 at 0600 by DAE FARMER RN Amended: Links added.
--- NOTE | 2016-12-03 07:46 | NUR ---
END OF SHIFT NOTE Pt is 36 y o male, admitted on 11/27/16 for heroin (1-1.5 g aily for 5 months) and Xanax ( 4-8 mg daily for 1 yr) dependence. Pt is on 5 day Valium and 5 day Subutex tapers to be finished on 12/03/16. Pt presented with withdrawal s/s of axiety, moist eyes, tremors, chills, sweats, body aches. Taper medications were given as ordered. Last COWS 3, CIWA 2. VSS. Pt received prn Toradol for pain at 2111, and prn Benadryl at 2349 for sleep, both effective. Pt slept for 6 hrs. PMH of depression and anxiety. Pt is full code, regular diet, allergic to PCN. Pt is on fall precautions. Report endorsed to day shift.
--- NOTE | 2016-12-03 07:49 | NUR ---
START OF SHIFT Received report from retail shift leader nurse. Pt is a 36 year old male admitted for opiate and benzo dependence. Allergies to PCN. Pt is A/O x4. V/S remain WNL throughout shift. PRN Toradol and Benadryl administered and effective. Pt slept for 6 hours. Pt ambulates with steady gait, has adequate caloric and fluid intake. Pt remains calm, compliant and cooperative with treatment plan. CXR and Abdominal US completed, is aware of results. Pt has completed ordered taper. Most recent COWS 3, CIWA 2. All needs met. Will continue monitoring.
[2016-12-03] MEDS: HYDROXYZINE PAMOATE 25 MG CAPSULE PO PRN ×2 (09:05→19:37)
--- NOTE | 2016-12-03 09:05 | NUR ---
PRN VISTARIL Pt complains of increased anxiety that is not relieved with nonpharmacological methods. Encouraged deep breathing. PRN Vistaril administered as ordered, will reassess.
[2016-12-03] MEDS: BACLOFEN 20 MG TABLET PO SCH ×3 (09:06→20:29)
[2016-12-03] MEDS: MULTIVITAMINS,THERAPEUTIC TABLET PO SCH (09:06)
[2016-12-03] MEDS: GABAPENTIN 300 MG CAPSULE PO SCH ×3 (09:06→20:30)
[2016-12-03] MEDS: ESCITALOPRAM OXALATE 10 MG TABLET PO SCH (09:06)
[2016-12-03] MEDS: CHOLECALCIFEROL 1,000 UNIT TABLET PO SCH (09:06)
[2016-12-03] MEDS: CLONIDINE HCL 0.1 MG TABLET PO SCH ×3 (09:06→20:30)
[2016-12-03] MEDS: LIDOCAINE 5% PATCH TD SCH (09:07)
[2016-12-03 09:45] VITALS: BP 121/81
--- NOTE | 2016-12-03 10:10 | NUR ---
REASSESSMENT Pt reports medication was effective and anxiety is now decreased. Pt attends group activities and verbalizes feelings. Will continue to monitor.
[2016-12-03 13:09] VITALS: BP 117/80
--- NOTE | 2016-12-03 15:57 | NUR ---
1500 MEDS NON ADMIN Pt refused medication and said "I just want to sleep." Pt is sleeping in bed, RR even and unlabored, V/S remain WNL.
[2016-12-03 17:29] VITALS: BP 109/63
[2016-12-03] MEDS ORDERED: CLON0.1T14 PO (17:30)
[2016-12-03] MEDS ORDERED: Ibuprofen PO (17:30)
[2016-12-03] MEDS ORDERED: METH-33 PO (17:30)
[2016-12-03] MEDS ORDERED: LIDO30AD10 TD (17:30)
[2016-12-03] MEDS ORDERED: Gabapentin PO (17:30)
[2016-12-03] MEDS ORDERED: DICY20TA28 PO (17:30)
[2016-12-03] MEDS ORDERED: CHOL10002 PO (17:30)
[2016-12-03] MEDS ORDERED: ESCI10TA PO (17:30)
[2016-12-03] MEDS ORDERED: HYDR-3895 PO (17:30)
--- NOTE | 2016-12-03 18:45 | NUR ---
END OF SHIFT NOTES 36 year old male admitted for opiate and benzo dependence. Allergies to PCN. Pt is A/O x4. V/S remain WNL throughout shift. PRN Vistaril administered and effective. Pt ambulates with steady gait, has adequate caloric and fluid intake. Pt remains calm, compliant and cooperative with treatment plan. CXR and Abdominal US completed, MD is aware of results. Pt has completed ordered taper, and does not present with acute s/s of withdrawal throughout shift. Pt refused 1500 Meds, not administered because pt wanted to sleep. Education provided. Pt is medically cleared for discharge, pt did not bring any home meds. Urine needed for d/c.Most recent COWS 1, CIWA 1. All needs met. film processing shift supervisor will continue monitoring.
--- NOTE | 2016-12-03 19:37 | NUR ---
START OF SHIFT NOTE AND PRN VISTARIL Received report from day shift nurse. Pt is 36 y o male, admitted on 11/27/16 for heroin (1-1.5 g daily for 5 months) and Xanax ( 4-8 mg daily for 1 yr) dependence. Pt has completed 5 day Valium and 5 day Subutex taper and scheduled for discharge on 12/04/16. PMH of depression and anxiety. Pt is full code, regular diet, allergic to PCN. Pt in room, aaox4. Pt c/o severe anxiety, chills. Pt reinforced on relaxation techniques, verbalized understanding; without effect. Administered prn Vistaril 50 mg PO for anxiety. Skin flushed, barely sweaty. No tremors noted. Lung sounds clear bilat, heart rate regular. Pt denies n/v/, bowel sounds active 4. Pt denies urinary difficulties. Pt is on fall precautions. Side rails up x 2, call light within reach, bed locked in lowest position. Will continue with plan of care.
[2016-12-03 20:00] VITALS: BP 120/70
--- NOTE | 2016-12-03 20:10 | NUR ---
REASSESSMENT Pt reports anxiety level decreased to tolerable level. Pt is awake, currently in rec room
[2016-12-03 21:03] LABS: *AMPHETAMINE, URINE NEGATIVE (NEGATIVE); *BARBITURATE, URINE NEGATIVE (NEGATIVE); *CANNABINOID, URINE NEGATIVE (NEGATIVE); *COCCAINE, URINE NEGATIVE (NEGATIVE); *OPIATE, URINE NEGATIVE (NEGATIVE); *PHENCYCLIDINE SCREEN,URINE NEGATIVE (NEGATIVE)
--- NOTE | 2016-12-04 | NUR ---
VS, COWS, CIWA Pt refused VS and COWS/ CIWA assessment, state he wants to sleep and not to be bothered. Pt asleep, RR even and unlabored at 19 breaths per minute. Side rails up x 2, call light within reach, bed locked in lowest position. Will continue To monitor Addendum: 12/04/16 at 0401 by DAE FARMER RN Amended: Links added.
--- NOTE | 2016-12-04 04:11 | NUR ---
VS, COWS, CIWA Pt refused VS and COWS/ CIWA assessment, state he wants to sleep and not to be bothered. Pt asleep, RR even and unlabored at 18 breaths per minute. Side rails up x 2, call light within reach, bed locked in lowest position. Will continue to monitor Addendum: 12/04/16 at 0411 by DAE FARMER RN Amended: Links added.
--- NOTE | 2016-12-04 07:22 | NUR ---
END OF SHIFT NOTE Pt is 36 y o male, admitted on 11/27/16 for heroin (1-1.5 g aily for 5 months) and Xanax ( 4-8 mg daily for 1 yr) dependence. Pt completed 5 day Ativan and 5 day Subutex taper, scheduled for discharge UDS collected and resulted, discharge orders in chart. Withdrawal s/s included of anxiety, chills, minimal sweats. Pt received prn Vistaril at 1940, was effective. Last COWS 3, CIWA 2 at 1999. VSS. Pt slept for 9 hrs. PMH of depression and anxiety. Pt is full code, regular diet, allergic to PCN. Pt is on fall precautions. Report endorsed to day shift.
--- NOTE | 2016-12-04 08:00 | NUR ---
START OF SHIFT Pt 36 y/o male admitted for opioid and benzo dependence. Pt received in room awake sitting on bed. Pt alert and oriented to name, place, and time. perrla. Skin warm and slightly moist to touch. Respirations even and unlabored. Bilateral hand tremors noted. Pt states he has episodes of chills and sweats. It was reported that pt slept for 9 hours last night. Bed on lowest position with side rails x2 up for safety. Call rylee mike. No distress noted at this time.
[2016-12-04] MEDS: CHOLECALCIFEROL 1,000 UNIT TABLET PO SCH (08:33)
[2016-12-04 08:34] VITALS: BP 101/60
[2016-12-04] MEDS: GABAPENTIN 300 MG CAPSULE PO SCH (08:34)
[2016-12-04] MEDS: ESCITALOPRAM OXALATE 10 MG TABLET PO SCH (08:34)
[2016-12-04] MEDS: BACLOFEN 20 MG TABLET PO SCH (08:34)
[2016-12-04] MEDS: CLONIDINE HCL 0.1 MG TABLET PO SCH (08:34)
[2016-12-04] MEDS: LIDOCAINE 5% PATCH TD SCH (08:35)
[2016-12-04] MEDS: MULTIVITAMINS,THERAPEUTIC TABLET PO SCH (08:35)
--- NOTE | 2016-12-04 09:17 | NUR ---
DISCHARGE Pt discharged to [facility] via private transport. Pt alert and oriented to name, place, and time. PErrla. Skin warm and dry to touch. No hand tremors noted. Respirations even and unlabored. Skin warm and dry to touch. Pt is excited to be discharged. VS wnl. All discharged papers signed. All belongings packed in bag. There was no home medications and pt verified. No distress noted.
[2016-12-04 10:07] LABS: HEPATITIS B CORE AB, IgM Negative (Negative); HEPATITIS B CORE AB, TOTAL Positive (Negative)
[2016-12-05 04:09] LABS: HEPATITIS Be ANTIGEN Positive (Negative)
[2016-12-06 12:08] LABS: *AMPHETAMINE Positive (.); *BENZODIAZEPINES Positive (.); *COCAINE Positive (.); *CODEINE Positive (.); *HYDROMORPHONE Positive (.); *METHAMPHETAMINE Positive (.); *NORDIAZEPAM Negative (Cutoff=300); *OPIATES Positive ng/mL (Cutoff=300); *OXAZEPAM Negative (Cutoff=300)
== END 2016-12-04 09:17 | disposition other institution (70) | DRG 895 ==
LOC: SRC 15:16
PROVIDERS: ADMIT Internal Medicine; ATTEND Internal Medicine
PROC: HZ2ZZZZ Detoxification Services for Substance Abuse Treatment (ICD-10-PCS; principal; 2016-11-27)
PROC: HZ31ZZZ Individual Counseling for Substance Abuse Treatment, Behavioral (ICD-10-PCS; 2016-11-30)
PROC: HZ41ZZZ Group Counseling for Substance Abuse Treatment, Behavioral (ICD-10-PCS; 2016-11-30)
DX: F11.23 Opioid dependence with withdrawal (principal); B18.1 Chronic viral hepatitis B without delta-agent; F33.1 Major depressive disorder, recurrent, moderate; F10.21 Alcohol dependence, in remission; F13.230 Sedative, hypnotic or anxiolytic dependence with withdrawal, uncomplicated; S82.301S Unspecified fracture of lower end of right tibia, sequela; S82.831S Other fracture of upper and lower end of right fibula, sequela; V89.2XXS Person injured in unspecified motor-vehicle accident, traffic, sequela; Z81.3 Family history of other psychoactive substance abuse and dependence; Z83.3 Family history of diabetes mellitus; Z82.49 Family history of ischemic heart disease and other diseases of the circulatory system; Z88.0 Allergy status to penicillin; F12.20 Cannabis dependence, uncomplicated; F17.210 Nicotine dependence, cigarettes, uncomplicated; E55.9 Vitamin D deficiency, unspecified; E88.09 Other disorders of plasma-protein metabolism, not elsewhere classified; B19.20 Unspecified viral hepatitis C without hepatic coma; F06.4 Anxiety disorder due to known physiological condition; Z80.0 Family history of malignant neoplasm of digestive organs; F15.10 Other stimulant abuse, uncomplicated; D64.9 Anemia, unspecified; G25.81 Restless legs syndrome
CPT/HCPCS: 36415; 70030-TC; 71010; 76700; 80307; 80324; 80346; 80353; 80361; 82306; 82746; 83550; 83735; 84443; 85025; 86592; 86704; 86705; 86803; 87340; 87350; 87521; 87806; A4663; G6040-TC; J1885; Q0162; Q0163